=== PATIENT | male | born 1980 | race Caucasian/White ===

== ENCOUNTER 2016-10-22 19:17 | Emergency (ER) | payer MEDICAID ==
[2016-10-22 20:31] VITALS: BP 157/88
== END 2016-10-22 20:31 | disposition home or self-care (01) ==
LOC: ED 19:17
DX: J03.90 Acute tonsillitis, unspecified (principal)
CPT/HCPCS: J0696; J1100; J2001

== ENCOUNTER 2016-10-26 22:17 | Emergency (ER) | payer MEDICAID ==
[~2016-10-26] VITALS: Ht 182.9 cm; Wt 136.5 kg
[2016-10-26 23:46] VITALS: BP 152/96
== END 2016-10-26 23:46 | disposition home or self-care (01) ==
LOC: ED 22:17
DX: J20.9 Acute bronchitis, unspecified (principal); J45.909 Unspecified asthma, uncomplicated
CPT/HCPCS: J1885; J7512; J7613; J7644; Q0092